=== PATIENT | female | born 1970 | race Caucasian/White ===

== ENCOUNTER 2017-09-08 13:43 | Inpatient (IN) | payer BC ==
[~2017-09-08] VITALS: Ht 165.1 cm; Wt 45.0 kg
[2017-09-08 16:29] LABS: HEMATOCRIT 40.3 % (36.0-46.0); HEMOGLOBIN 14.3 G/DL (11.9-15.5); MCHC 35.5 G/DL (30.0-36.0); MCV 98.5 FL (83-99); PLATELET COUNT 261 K/uL (156-360); RBC DIS.WIDTH-CV 11.1 % (11.8-14.6); RED BLOOD COUNT 4.09 M/uL (3.80-5.20); WHITE BLOOD COUNT 14.6 K/uL (4.1-10.2)
[2017-09-08 16:37] LABS: CHLORIDE 98 mEq/L (99-109); SODIUM 134 mEq/L (136-147)
[2017-09-08 16:39] LABS: GLUCOSE 225 mg/dL (70-99)
[2017-09-08 16:43] LABS: CREATININE 0.7 mg/dL (0.6-1.3); GFR ESTIMATE (CALCULATED) > 59 mL/min/
[2017-09-08 16:44] LABS: UREA NITROGEN (BUN) 5 mg/dL (9-23)
[2017-09-08] MEDS ORDERED: VITAMIN B-122500 MCG SL (17:50)
[2017-09-08] MEDS ORDERED: PROAIR HFA8.5 GM IH (17:50)
[2017-09-08 19:00] LABS: TROP-I INTERPRETATION NEGATIVE; TROPONIN-I < 0.01 ng/mL (0.0-0.30)
[2017-09-08 22:01] VITALS: BP 109/73
[2017-09-09] VITALS (7 sets, daily range): BP systolic 107–138; BP diastolic 59–79
[2017-09-09 00:11] LABS: TOTAL PROTEIN 7.7 g/dL (6.4-8.3)
[2017-09-09 00:12] LABS: TOTAL BILIRUBIN 0.4 mg/dL (0.0-1.0)
[2017-09-09 00:14] LABS: ALKALINE PHOSPHATASE 69 IU/L (3-129)
[2017-09-09 00:16] LABS: AST (GOT) 17 IU/L (2-34); DIRECT BILIRUBIN 0.3 mg/dL (0.0-0.3)
[2017-09-09 00:17] LABS: ALT (GPT) 13 IU/L (3-49)
[2017-09-09 05:49] LABS: BASOPHIL (%) 0.1 % (0-1); EOSINOPHIL (%) 0 % (0-5); HEMATOCRIT 39.7 % (36.0-46.0); HEMOGLOBIN 13.1 G/DL (11.9-15.5); IMMATURE GRANULOCYTE (%) 0.5 % (0.0-0.7); LYMPHOCYTE (%) 7.8 % (15-42); LYMPHOCYTE COUNT 0.8 K/uL (1.0-2.8); MONOCYTE (%) 5.1 % (3-12); MONOCYTE COUNT 0.5 K/uL (0-0.8); NEUTROPHIL (%) 86.5 % (45-76); NEUTROPHIL COUNT 8.6 K/uL (1.8-6.4); PLATELET COUNT 255 K/uL (156-360); RBC DIS.WIDTH-CV 11.1 % (11.8-14.6); RBC DIS.WIDTH-SD 40.9 % (39-53); RED BLOOD COUNT 3.97 M/uL (3.80-5.20)
[2017-09-09 06:14] LABS: CHLORIDE 107 MEQ/L (99-109); CREATININE 0.5 MG/DL (0.6-1.3); GFR ESTIMATE (CALCULATED) > 59 mL/min/; GLUCOSE 155 mg/dL (70-99); POTASSIUM 4.2 MEQ/L (3.7-5.4); SODIUM 140 MEQ/L (136-147); UREA NITROGEN (BUN) 8 mg/dL (9-23)
[2017-09-10 03:36] VITALS: BP 139/77
[2017-09-10 05:35] LABS: HEMOGLOBIN 12.4 G/DL (11.9-15.5); MCH 33.8 PG (29.0-34.0); MCHC 33.5 G/DL (30.0-36.0); MCV 100.8 FL (83-99); PLATELET COUNT 304 K/uL (156-360); RBC DIS.WIDTH-CV 11.2 % (11.8-14.6); RBC DIS.WIDTH-SD 41.8 % (39-53); RED BLOOD COUNT 3.67 M/uL (3.80-5.20); WHITE BLOOD COUNT 14.2 K/uL (4.1-10.2)
[2017-09-10 07:51] VITALS: BP 127/79
[2017-09-10 11:35] VITALS: BP 143/67
[2017-09-10 15:59] VITALS: BP 131/70
[2017-09-10 19:34] VITALS: BP 136/70
[2017-09-10 23:37] VITALS: BP 145/87
[2017-09-11 03:48] VITALS: BP 131/69
[2017-09-11 05:58] LABS: HEMATOCRIT 38.5 % (36.0-46.0); HEMOGLOBIN 12.6 G/DL (11.9-15.5); MCH 33.3 PG (29.0-34.0); MCHC 32.7 G/DL (30.0-36.0); MCV 101.9 FL (83-99); PLATELET COUNT 345 K/uL (156-360); RBC DIS.WIDTH-CV 11.3 % (11.8-14.6); RBC DIS.WIDTH-SD 42.5 % (39-53); RED BLOOD COUNT 3.78 M/uL (3.80-5.20); WHITE BLOOD COUNT 12.7 K/uL (4.1-10.2)
[2017-09-11 07:17] VITALS: BP 144/65
[2017-09-11 11:05] VITALS: BP 135/67
[2017-09-11] MEDS ORDERED: LEVAQUIN750 MG PO (11:46)
[2017-09-11] MEDS ORDERED: PREDNISONE10 MG PO (11:46)
[2017-09-11] MEDS ORDERED: NICOTINE PATCH1 EAC2 TD (11:46)
[2017-09-11] MEDS ORDERED: DUONEB 2.5-0.5 M3 ML AEROSOL (11:46)
[2017-09-11] MEDS ORDERED: MUCINEX600 MG PO (11:46)
[2017-09-11] MEDS ORDERED: ADVAIR 250/501 DISK IH (11:46)
[2017-09-11] MEDS ORDERED: MONTELUKAST SOD10 MG PO (11:46)
[2017-09-11] MEDS ORDERED: SPIRIVA1 INHALATI IH (11:46)
== END 2017-09-11 16:08 | disposition home or self-care (01) | DRG 193 ==
LOC: EME 13:43 → EDOF 20:10 → 5SOUTH 20:10 → ENRESERV 20:15 → 5SOUTH 21:21
PROVIDERS: Hospitalist; Internal Medicine; Physician Assistant Medical
DX: J18.0 Bronchopneumonia, unspecified organism (principal); J96.01 Acute respiratory failure with hypoxia; J44.0 Chronic obstructive pulmonary disease with (acute) lower respiratory infection; J44.1 Chronic obstructive pulmonary disease with (acute) exacerbation; E87.1 Hypo-osmolality and hyponatremia; Z68.1 Body mass index [BMI] 19.9 or less, adult; R73.9 Hyperglycemia, unspecified; F17.200 Nicotine dependence, unspecified, uncomplicated; R63.4 Abnormal weight loss; Z71.6 Tobacco abuse counseling; Z59.0 Homelessness
CPT/HCPCS: 71260; 80048; 80076; 83605; 84484; 85025; 85027; 87040; 87070; 87076; 87205; 87449; 93005; 94640; 94640 76; 94799; 99202; 99281; 99285; J0295; J0456; J0696; J1650; J2930; J7030; J7050